=== PATIENT | male | born 1960 | race Caucasian/White ===

== ENCOUNTER → 2018-07-04 | Outpatient (CLI) | payer BC ==
[~2018-07-04] MED LIST: AMOX-559 PO; ATR80PT PO; BUTA1CAP6 PO; BUTA1TAB14 PO; CHOL10005 PO; CLOB15OI16 TP; CYCL10TA29 PO; ENOX120D5 SQ; ENOX40DI9 SQ; ESCI10TA8 PO; FLU60VIA41 IM; GEMF600T96 PO; HYDR-2966 PO; HYDR-385 PO; LEVO150T78 PO; LISI-362 PO; MULT-885 PO; ROSU20TA24 PO; SALM1CAP3 PO; SIL50 FT; SIL50 PO; SIMV-54 PO; SOUR1000 PO; TADA5TAB13 PO; WARF5TAB23 PO
[2018-07-04 09:45] LABS: INR 1.2; PLATELET COUNT, AUTOMATED 252 K/uL (150-450)
== END ==
LOC: LAB 09:17
PROVIDERS: ATTEND Family Medicine
DX: C61 Malignant neoplasm of prostate (principal); E03.9 Hypothyroidism, unspecified; I10 Essential (primary) hypertension; Z79.01 Long term (current) use of anticoagulants
CPT/HCPCS: 36415; 82040; 82247; 82310; 82374; 82435; 82565; 82947; 84075; 84132; 84153; 84155; 84295; 84443; 84450; 84460; 84520; 85025; 85610